=== PATIENT | male | born 1950 | race Caucasian/White ===

== ENCOUNTER 2018-03-28 10:05 | Outpatient (CLI) | payer BC ==
[2018-03-28] MEDS ORDERED: ISOVUE-370 76%-LOCM 1 ML ONE (12:42)
== END 2018-03-28 10:06 | disposition home or self-care (01) ==
LOC: BICCT 10:05
PROVIDERS: ATTEND Internal Medicine
DX: E27.9 Disorder of adrenal gland, unspecified (principal); D35.02 Benign neoplasm of left adrenal gland
CPT/HCPCS: 74170; 82565

== ENCOUNTER 2018-08-18 11:31 | Outpatient (CLI) | payer MEDICARE ==
--- NOTE | 2018-08-18 16:15 | PET ---
PET CT: HISTORY: Right lung nodule, solitary pulmonary nodule. TECHNIQUE: PET scanning with CT attenuation correction was performed from the base of the brain through the prox imal thighs following the intravenous administration of 10.6 mCi [id number] in the left antecubital marcos a. Imaging was performed after an uptake interval of 46 minutes. COMPARISON: None. FINDINGS: No hypermetabolic activity is seen in the 1.0 cm right upper lobe lung nodule (SUV 2). A 7.0 mm nodul e in the right lung base has a SUV of 1.3. No vicky hypermetabolism is seen in the neck, chest, axilla, abdomen, or pelvis. No hypermetabolic pu lmonary nodules, liver, adrenal, or skeletal lesions are seen. The 15.0 mm left adrenal adenoma noted on the CT abdomen/pelvis of 03/28/18 demonstrates no abnormal FDG localization. The CT scan used for attenuation correction demonstrates no evidence of pleural effusions or ascites. There is physiologic activity in the GI and tracts, heart, and visualized portions of the brain. IMPRESSION: No abnormal FDG localization in the right lung nodules. RECOMMENDATION: Follow-up CT scan of chest is recommended in 3 months. POS: ADELITA
== END 2018-08-18 11:32 | disposition home or self-care (01) ==
LOC: PET 11:31
PROVIDERS: ATTEND Internal Medicine Critical Care Medicine
DX: R91.1 Solitary pulmonary nodule (principal)
CPT/HCPCS: 78815; A9552

== ENCOUNTER 2019-02-14 09:42 | Outpatient (CLI) | payer MEDICARE ==
--- NOTE | 2019-02-14 11:31 | CT ---
CT CHEST WITHOUT CONTRAST: HISTORY: Follow up PET scan. Lung nodules. COMPARISON: PET CT from 08/18/2018. FINDINGS: No significant interval growth of the right upper lobe 1 cm nodule. The 7 mm nodule in the right low er lobe on the previous day now measures approximately 5 mm. No new suspicious pulmonary nodule. No pneumothorax. No effusion. No mediastinal adenopathy. Dense calcifications of the [place] coronary arteries. Left adrenal adenoma is similar. No thoracic spine compression deformity. There is abnormal mixed lytic and sclerotic focus within th e manubrium of the sternum, similar to the PET CT examination. Old right anterior third rib fracture . Old right anterior fourth, fifth, and sixth rib fractures, and a seventh rib fracture. No acute displaced rib fracture. IMPRESSION: 1. Size unchanged, right upper lobe pulmonary nodule. Size decrease, right basilar pulmonary nodule . Follow-up CT in six months recommended. 2. Mixed lytic and sclerotic focus with some ground glass within the manubrium of the sternum. This is similar to the PET CT examination. Given its lack of fluorodeoxyglucose avidity, this is most li micheal fibrous dysplasia. Attention on follow-up imaging is recommended. 3. Right adrenal adenoma. 4. Remote right rib fractures. POS: CET
== END 2019-02-14 09:43 | disposition home or self-care (01) ==
LOC: BICCT 09:42
PROVIDERS: ATTEND Internal Medicine Critical Care Medicine
DX: R91.1 Solitary pulmonary nodule (principal); D35.01 Benign neoplasm of right adrenal gland
CPT/HCPCS: 71250

== ENCOUNTER 2019-11-15 12:17 | Outpatient (CLI) | payer MEDICARE ==
--- NOTE | 2019-11-15 13:07 | CT ---
NONCONTRAST CHEST CT: COMPARISON: 02/14/2019. CORRELATION: PET imaging 08/18/2018. HISTORY: Follow-up right lung pulmonary nodule. FINDINGS: Mediastinum: No mass, lymphadenopathy or hematoma. Evaluation is limited by the absence of IV contras t. Atherosclerosis of a nonaneurysmal aorta. Heart size is normal. No significant pericardial fluid. There are coronary calcifications. Upper abdomen: Redemonstration of a left adrenal adenoma, measuring 2.5 x 2.1 cm. Evaluation of the s olid organs is limited by the lack of IV contrast. There is nonspecific stranding of the abdominal mesentery with mildly enlarged lymph nodes in the left upper quadrant. Correlate for mesenteric lymph adenitis. [employer] enlarged mesenteric lymph node measures 1.3 x 1.0 cm. Redemonstration of a groundglass opacity involving the manubrium of the sternum, present described to the possible fibrous dysplasia. Old bilateral rib fractures are noted. Trachea and central bronchi: Patent. Lungs: Scattered emphysematous changes predominantly in the lung apices. Pleural spaces: No pleural effusion. Pneumothorax: No nodules. Right lung: Patchy groundglass opacities scattered throughout the lung parenchyma. There are patchy n onspecific ill-defined groundglass opacities along the periphery of the right upper lobe. These opacities have developed since the previous examination and may represent atypical infiltrate. There is interval development of a 0.3 cm solid nodule in the right upper lobe. There is an interval second newly identified 0.4 cm solid nodule in the right upper lobe. Stable 0.4 x 0.5 cm solid nodule lateral aspect of the middle lobe, previously measuring 0.4 x 0.5 cm. Redemonstration of a well-circumscribed round nodule in the right upper lobe measuring 0.8 x 0.8 cm, previously measuring 0.8 x 0.8 cm, previously measuring 0.8 x 0.8 cm. No appreciable change in size. Stable pleural-based opacity along the posterior right lower lobe measuring 0.6 x 0.6 cm. Left lung: No opacities or consolidation. No suspicious masses. IMPRESSION: 1. Interval development of multiple irregular groundglass opacities scattered throughout the right up per lobe. Correlate for atypical infection or infiltrate. Interval development of small 3 to 4 mm nodules also the right upper lobe. Correlate clinically. Followup imaging in 3-6 months. 2. Essentially stable solid nodule in the right upper lobe, middle lobe and right lower lobe. 3. 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 Old bilateral rib fractures. 4. Left adrenal adenoma. Transcribed Date/Time: 11/15/2019 1:22 PM
== END 2019-11-15 12:18 | disposition home or self-care (01) ==
LOC: BICCT 12:17
PROVIDERS: ATTEND Internal Medicine Critical Care Medicine
DX: R91.1 Solitary pulmonary nodule (principal); D35.02 Benign neoplasm of left adrenal gland; Z87.81 Personal history of (healed) traumatic fracture
CPT/HCPCS: 71250